=== PATIENT | male | born 1975 | race Caucasian/White ===

== ENCOUNTER 2022-08-05 07:50 | Outpatient (CLI) | payer BC, SELFPAY ==
[2022-08-05 14:28] LABS: Albumin* 4.7 g/dL (3.3-5.0)
[2022-08-05 14:29] LABS: Chloride* 105 mmol/L (96-114); Potassium* 5.2 mmol/L (3.6-5.1); Sodium* 140 mmol/L (135-149)
[2022-08-05 14:31] LABS: Aspartate Amino Transferase* 28 U/L (12-35); Carbon Dioxide* 29 mmol/L (20-32); Estimated Glomerular Filt Rate 93 ml/min
[2022-08-05 14:32] LABS: Alanine Aminotransferase* 16 U/L (4-50); Alkaline Phosphatase* 70 U/L (40-150); Blood Urea Nitrogen* 19 mg/dL (5-24); Calcium* 9.7 mg/dL (8.4-10.6); Glucose* 86 mg/dL (60-115); Total Protein* 7.6 g/dL (6.0-8.3)
== END 2022-08-05 07:51 | disposition home or self-care (01) ==
LOC: FRMREF 07:51
PROVIDERS: PCP Physician Assistant Medical; Visit Provider Physician Assistant Medical
DX: R10.32 Left lower quadrant pain (principal)
CPT/HCPCS: 80053

== ENCOUNTER 2022-08-13 07:13 | Outpatient (CLI) | payer BC, SELFPAY ==
--- NOTE | 2022-08-13 08:00 | CRLHL7_ITS ---
For Patients: As a result of the Century Cures Act, medical imaging exams and procedure reports are released immediately into your electronic medical record. You may view this report before your referring provider. If you have questions, please contact your health care provider. Indication: Left lower quadrant pain Technique: Postcontrast CT abdomen and pelvis. 89 cc Isovue 370 intravenous contrast. Please note that all CT scans at this facility use dose modulation, iterative reconstruction, and/or weight-based dosing when appropriate to reduce radiation dose to as low as reasonably achievable. Comparison: None Findings: Lung bases are clear. 9 millimeter hypodensity right hepatic lobe at the dome consistent with benign cyst or hemangioma. Less than 5 millimeter hypodensity left hepatic lobe measuring 3.6 millimeters, too small to characterize but also likely benign. No stigmata of cirrhosis. Gallbladder normal. No calcified gallstones. No biliary obstruction. Normal pancreas and spleen. The adrenal glands and kidneys are normal. Normal ureters. A small hiatal hernia is present with mild mucosal thickening, measuring 2 cm. No abdominal or pelvic adenopathy. No bowel obstruction or free air. No free fluid or abscess. There is no evidence of diverticulitis. Faint stranding is present within the fat adjacent to the anti mesenteric sigmoid colon wall. Normal appendix. Moderate colonic stool. No evidence of small bowel pathology. No fracture. Impression: Subtle mild sigmoid colon appendagitis suspected. No evidence of diverticulitis. Normal appendix. Benign subcentimeter hypodensities in the liver. 2 cm hiatal hernia with mild mucosal wall thickening of the distal esophagus suggesting reflux esophagitis. Please note that all CT scans at this facility use dose modulation, iterative reconstruction, and/or weight-based dosing when appropriate to reduce radiation dose to as low as reasonably achievable. Dictated by Rajinder Florenitno MD @ 08/13/2022 9:00:15 AM (Electronically Signed)
== END 2022-08-13 07:14 | disposition home or self-care (01) ==
LOC: CT 07:13
PROVIDERS: PCP Physician Assistant Medical; Visit Provider Family Medicine
DX: R10.32 Left lower quadrant pain (principal); K76.9 Liver disease, unspecified; K44.9 Diaphragmatic hernia without obstruction or gangrene
CPT/HCPCS: 74177; Q9967